=== PATIENT | female | born 2000 | race Caucasian/White ===

== ENCOUNTER 2025-03-01 05:55 | Inpatient (IN) | payer BC | END 2025-03-05 18:10 | disposition home or self-care (01) | DRG 806 | LOC: FBC 05:55 | PROVIDERS: ADMIT Obstetrics & Gynecology | PROC: 10E0XZZ Delivery of Products of Conception, External Approach (ICD-10-PCS; principal; 2025-03-03) | PROC: 0KQM0ZZ Repair Perineum Muscle, Open Approach (ICD-10-PCS; 2025-03-03) | PROC: 10907ZC Drainage of Amniotic Fluid, Therapeutic from Products of Conception, Via Natural or Artificial Opening (ICD-10-PCS; 2025-03-03) | PROC: 3E0DXGC Introduction of Other Therapeutic Substance into Mouth and Pharynx, External Approach (ICD-10-PCS; 2025-03-03) | DX: O13.4 Gestational [pregnancy-induced] hypertension without significant proteinuria, complicating childbirth (principal); D62 Acute posthemorrhagic anemia; Z37.0 Single live birth; Z3A.37 37 weeks gestation of pregnancy; O99.03 Anemia complicating the puerperium; O69.81X0 Labor and delivery complicated by cord around neck, without compression, not applicable or unspecified; O70.1 Second degree perineal laceration during delivery; O99.344 Other mental disorders complicating childbirth; F41.9 Anxiety disorder, unspecified; F32.A Depression, unspecified; Z98.890 Other specified postprocedural states; Z79.899 Other long term (current) drug therapy ==

== ENCOUNTER 2025-08-29 16:41 | Emergency (ER) | payer BC ==
[~2025-08-29] VITALS: Ht 162.6 cm; Wt 92.6 kg
[2025-08-29 17:22] LABS: BLOOD/HGB, URINE NEGATIVE (Negative); KETONE, URINE NEGATIVE (Negative); LEUK ESTERASE, URINE NEGATIVE (negative); NITRITE, URINE NEGATIVE (negative)
[2025-08-29 17:28] LABS: BASOPHILS 0.4 % (0.1-1.2); EOSINOPHILS 0.9 % (0.7-5.8); LYMPHOCYTES 13.0 % (19.3-51.7); MCH 29.4 PG (25.6-32.2); MCHC 33.4 g/dL (32.2-35.5); MCV 87.9 fL (79.4-94.8); MONOCYTES 4.4 % (4.7-12.5); NEUTROPHILS 81.0 % (34.0-71.1); RBC 4.12 M/uL (3.93-5.22)
[2025-08-29 17:49] LABS: ALT (SGPT) 87.0 U/L (14-59); AST (SGOT) 46.0 U/L (15-37); GLOMERULAR FILTRATION RATE,EST 106.0 mL/min (>60); PROTEIN, TOTAL 8.3 g/dL (6.4-8.2); UREA NITROGEN 17.0 mg/dL (7-18)
[2025-08-29] MEDS ORDERED: ONDANSETRON ODT8 MG PO (18:21)
[2025-08-29] MEDS ORDERED: HYDROCODON-ACE1 EA10 PO (18:21)
[2025-08-29] MEDS ORDERED: DICYCLOMINE HCL20 MG PO (18:21)
[2025-08-29 18:42] VITALS: BP 108/73
== END 2025-08-29 18:44 | disposition home or self-care (01) ==
LOC: ED 16:41
PROVIDERS: Emergency Medicine
DX: K80.50 Calculus of bile duct without cholangitis or cholecystitis without obstruction (principal)
CPT/HCPCS: 36415; 80053; 81003; 83690; 84703; 85025; 99284

== ENCOUNTER 2025-09-27 09:24 | Day surgery (SDC) | payer BC ==
[~2025-09-27] VITALS: Ht 162.6 cm; Wt 89.0 kg
[~2025-09-27 09:24] MED LIST: CEFAZOLIN SODIUM 2 GM in SODIUM CHLORIDE 0.9% 100 ML IV SCH; DICYCLOMINE HCL20 MG PO; HEParin SOD (PORCINE) 5,000 UNIT/ML SDV SUB-Q ONE; HYDROCODON-ACE1 EA10 PO; IBLOOD GLUCOSE TEST STRIP 1 EA TEST VI PRN; LACTATED RINGER'S 1,000 ML IV SCH; LIDOCAINE HCL 1% 5 ML SDV INJ ONE; ONDANSETRON ODT8 MG PO
[2025-09-27] MEDS ORDERED: fentaNYL citrate 100 MCG/2 ML VIAL ONE (09:39)
[2025-09-27] MEDS ORDERED: KETOROLAC TROMETHAMINE 30 MG/ML VIAL ONE (09:39)
[2025-09-27] MEDS ORDERED: Ropivacaine HCl 0.5% 30 ML VIAL ONE (09:39)
[2025-09-27] MEDS ORDERED: SODIUM CHLORIDE 0.9% 60 ML IV ONE (09:39)
[2025-09-27] MEDS ORDERED: ROCURONIUM BROMIDE 50 MG/5 ML SYR ONE (09:39)
[2025-09-27] MEDS ORDERED: MIDAZOLAM HCL 2 MG/2 ML VIAL ONE (09:39)
[2025-09-27] MEDS ORDERED: SUGAMMADEX SODIUM 200 MG/2 ML ML ONE (09:39)
[2025-09-27] MEDS ORDERED: DEXAMETHASONE SOD PHOS 4 MG/ML VIAL ONE ×2 (09:39→09:43)
[2025-09-27] MEDS ORDERED: LIDOCAINE HCL 2% 5 ML SDV ONE (09:39)
[2025-09-27 09:41] VITALS: BP 123/66
[2025-09-27] MEDS ORDERED: HEParin SOD (PORCINE) 5,000 UNIT/ML SDV ONE (10:02)
[2025-09-27] MEDS ORDERED: SODIUM CHLORIDE 0.9% 20 ML IV ONE (10:09)
--- NOTE | 2025-09-27 10:23 | NUR ---
S O AT BEDSIDE AND WAITING. DENA CH IN TO TALK WITH PT. DR METCALF IN TO TALK WITH PT.
[2025-09-27] MEDS ORDERED: fentaNYL citrate 50 MCG/ML SDV IV PRN (10:45)
[2025-09-27] MEDS ORDERED: IBLOOD GLUCOSE TEST STRIP 1 EA TEST VI PRN (10:45)
[2025-09-27] MEDS ORDERED: NALOXONE HCL 0.4 MG SYR IV PRN (10:45)
[2025-09-27] MEDS ORDERED: ACETAMINOPHEN 1,000 MG/100 ML VIAL ONE (11:39)
[2025-09-27] MEDS ORDERED: LACTATED RINGER'S 1,000 ML IV ONE (11:40)
[2025-09-27] MEDS ORDERED: OXYCODONE/APAP 5/325 TAB PO PRN (12:00)
--- NOTE | 2025-09-27 12:09 | NUR ---
09/27/25 1209 Lacey Carlisle 1203-PT ARRIVES TO PACU ON 6L VIA MASK. PT IS NONAROUSABLE WITH OPA IN PLACE. RESP EVEN AND UNLABORED.
[2025-09-27 12:37] VITALS: BP 115/63
--- NOTE | 2025-09-27 12:41 | NUR ---
CALL LIGHT GIVEN NO ONE WAITING.
[2025-09-27 13:23] VITALS: BP 121/70
--- NOTE | 2025-09-27 13:25 | NUR ---
REQUESTS PAIN MEDS FOR 4/10 PAIN. EATING CRACKERS.
--- NOTE | 2025-09-27 13:43 | OR ---
[facility] [address], [place] [address] Signed DATE OF OPERATION: 09/27/2025 SURGEON: Lisa Metcalf DO PREOPERATIVE DIAGNOSES: Cholecystitis and cholelithiasis. POSTOPERATIVE DIAGNOSES: Cholecystitis and cholelithiasis. PROCEDURE PERFORMED: Laparoscopic cholecystectomy. ANESTHESIA: General. ESTIMATED BLOOD LOSS: Minimal. DRAINS: None. COMPLICATIONS: None. DESCRIPTION OF PROCEDURE: The patient brought to the operating, placed in supine position. After induction of general endotracheal anesthesia, the abdomen was then sterilely shaved, prepped, and draped. Time-out was taken. All were in agreement of the procedure planned. Utilizing 11 blade scalpel, subumbilical incision was then made. The umbilicus was grasped with towel clip and a 5 mm Visiport disposable trocar was placed intra-abdominally, and the abdomen was insufflated with approximately 4 L of CO2 gas. Exploration was then carried out with a laparoscope and no evidence of injury was noted. The gallbladder was visualized. No other intra-abdominal pathology was noted. Through a separate stab incision, the right lateral quadrant 5 mm disposable trocar was placed under direct visualization and in the mid axillary line on the right upper quadrant a 5 mm disposable trocar was placed under direct visualization as well, and at the epigastric region, a 10 mm disposable trocar was placed under direct visualization as well. The gallbladder was then grasped at its fundus, retracted superiorly. The infundibulum was then grasped with grasping forceps and retracted. The cystic duct was then identified, was skeletonized, Electronically Signed By: LISA METCALF DO 09/27/25 1343 PATIENT NAME: REINALDO SPRINGER OPERATIVE REPORT DATE OF : [birth year] REPORT #: [id number] PHYSICIAN: LISA METCALF DO PCP: TANA SCHAFER PAC REPORT IS CONFIDENTIAL AND NOT TO BE RELEASED WITHOUT AUTHORIZATION [facility] [address], [place] [address] Signed clipped two times proximally and one time distally and divided. Dissection continued and the cystic artery was identified, skeletonized, clipped two times proximally and one time distally and divided. Posterior branch was then taken down with the LigaSure device. The gallbladder was then taken off the liver bed utilizing Bovie cautery while cauterizing any bleeding points along the way, this was taken up to the superior portion of fundus. The entire region was copiously irrigated and dried. The gallbladder was transected from the liver, placed in a bag and brought up through the 10 mm port, passed off the field. The entire region was then copiously irrigated and dried. Some bleeding was from the liver bed that were persistent were controlled with electrocautery. The area was further irrigated and dried. Clips were found to be in place and secured. Some hemostatic powder was placed in the liver bed under direct visualization. All instrumentation was removed. The fascia was closed with interrupted 0 Vicryl. Skin was then closed in all ports with interrupted 4-0 Monocryl in subcuticular fashion. Dermabond dressing was applied. The patient tolerated the procedure well and taken to recovery room in satisfactory condition. Lisa Metcalf DO RS/MODL /[id number] Copies: ~ Electronically Signed By: LISA METCALF DO 09/27/25 1343 PATIENT NAME: REINALDO SPRINGER FIORDALIZA OPERATIVE REPORT DATE OF : [birth year] REPORT #: [id number] PHYSICIAN: LISA METCALF DO PCP: TANA SCHAFER PAC REPORT IS CONFIDENTIAL AND NOT TO BE RELEASED WITHOUT AUTHORIZATION
--- NOTE | 2025-09-27 13:59 | NUR ---
PT ONLY WANTED HALF TAB. GIVEN.
[2025-09-27] MEDS ORDERED: SEVOFLURANE 250 ML BTL INH ONE (14:10)
[2025-09-27 15:30] VITALS: BP 124/81
--- NOTE | 2025-09-27 15:35 | NUR ---
PT AMB DOWN HALLWAY TO BR VOIDS 500MLS URINE. STATES SHES READY TO GO HOME. GETTING DRESSED. DC INSTRUCTIONS EXPLAINED TO HER AND AND REVIEWED ALL COMPUTER PRINT OUT EDUCATION. STATES THEY UNDERSTAND AND NO QUESTIONS.
--- NOTE | 2025-09-28 23:51 | PATH ---
[facility] [address], [place] [address] Signed SPECIMEN(S): A GALLBLADDER WITH STONES SPECIMEN SOURCE: A. GALLBLADDER WITH STONES CLINICAL HISTORY: Chronic cholecystitis FINAL PATHOLOGIC DIAGNOSIS: Gallbladder with stones per requisition: - Chronic calculous cholecystitis. - Mucosal cholesterolosis. JVR MICROSCOPIC EXAMINATION: Histologic sections of all submitted blocks are examined by light microscopy. These findings, together with the gross examination, support the pathologic diagnosis. GROSS DESCRIPTION: The specimen, labeled and designated "Felipa Springer, gallbladder with stones per requisition," is received in formalin and consists of Specimen: Surgically disrupted gallbladder. Dimensions: 6.7 x 2.2 x 1.5 cm. Serosa: Ott-green and smooth. Cystic Duct: Unobstructed, inked. Calculi: Present�yellow and botryoid. Mucosa: Green and velvety with yellow flecking. Wall thickness: 0.2 cm. Lymph node: No pericystic lymph nodes are grossly identified. Additional: None. Booster Station Operator sections are submitted in (A1). AA (under the direct supervision of a pathologist) The Gross Description was prepared using a voice recognition system. The report was reviewed for accuracy; however, sound-alike word errors, addition and/or deletions may occur. If there is any question about this report, please contact Client Services. ADDITIONAL NOTES: Immunohistochemical and/or in situ hybridization studies if performed in this case included appropriate positive controls that reacted as expected. This PATIENT NAME: REINALDO SPRINGER [facility] DATE OF : [birth year] REPORT #: [id number] PHYSICIAN: LEANNE PATRICK PCP: TANA SCHAFER PAC REPORT IS CONFIDENTIAL AND NOT TO BE RELEASED WITHOUT AUTHORIZATION [facility] [address] [place], [place] [address] Signed test was developed and its performance characteristics determined by [facility]. It has not been cleared or approved by the U.S. Food and Drug Administration. The FDA has determined that such clearance or approval is not necessary. This test is used for clinical purposes. It should not be regarded as investigational or for research. [facility] is certified under the Clinical Laboratory Improvement Amendments of 1988 (CLIA) as qualified to perform high complexity clinical laboratory testing. PERFORMING LABORATORY: Technical component was performed by [facility], [address] [place] [id number] (CLIA# [id number]). Professional interpretation was performed by [facility] [place] [facility] - [address] [place] [address]. [place] [address] (CLIA#: [id number]). Diagnostician: Dg Goldstein MD Pathologist Electronically Signed 09/28/2025 Copies: ~ PATIENT NAME: REINALDO SPRINGER PATHOLOGY DATE OF : [birth year] REPORT #: [id number] PHYSICIAN: LEANNE PATHOLOGY PCP: TANA SCHAFER PAC REPORT IS CONFIDENTIAL AND NOT TO BE RELEASED WITHOUT AUTHORIZATION
== END 2025-09-27 15:25 | disposition home or self-care (01) ==
LOC: DS 09:24
PROVIDERS: ATTEND Surgery
PROC: 3E0T3BZ Introduction of Anesthetic Agent into Peripheral Nerves and Plexi, Percutaneous Approach (ICD-10-PCS; 2025-09-27)
PROC: 0FT44ZZ Resection of Gallbladder, Percutaneous Endoscopic Approach (ICD-10-PCS; principal; 2025-09-27 10:30)
DX: K80.10 Calculus of gallbladder with chronic cholecystitis without obstruction (principal)
CPT/HCPCS: 00790; J0131; J0688; J1100; J1644; J1885; J2003; J2250; J2405; J2704; J2795; J3010; J3490; J7121